=== PATIENT | male | born 1960 | race Caucasian/White ===

== ENCOUNTER 2023-03-31 08:39 | Outpatient (CLI) | payer OTHER ==
[2023-03-31 09:16] LABS: ANION GAP 10.7 (8-16); CALCIUM 8.9 mg/dL (8.5-10.1); CARBON DIOXIDE 28.5 mmol/L (21-32); CREATININE 0.8 mg/dL (0.6-1.3); POTASSIUM 4.2 mmol/L (3.5-5.1)
== END 2023-03-31 19:14 | disposition home or self-care (01) ==
LOC: MLB 08:39
PROVIDERS: ATTEND Psychiatry & Neurology Neurology
DX: I60.9 Nontraumatic subarachnoid hemorrhage, unspecified (principal)
CPT/HCPCS: 36415; 80048

== ENCOUNTER 2023-04-12 08:20 | Outpatient (CLI) | payer OTHER | END 2023-04-12 18:02 | disposition home or self-care (01) | LOC: MCT 08:20 | PROVIDERS: ATTEND Psychiatry & Neurology Neurology | DX: I60.9 Nontraumatic subarachnoid hemorrhage, unspecified (principal) ==